=== PATIENT | male | born 1965 | race Caucasian/White ===

== ENCOUNTER 2017-05-28 16:37 | Emergency (ER) | payer BC ==
[~2017-05-28] VITALS: Ht 185.4 cm; Wt 95.0 kg
[~2017-05-28 16:37] MED LIST: BL ADULT ASA81 MG OR; FISH OIL1000 M1 OR; METOPROL TAR25 MG OR; PRILOSEC20 MG PO; SIMVASTATIN20 MG OR; ZOFRAN ODT4 MG OR
[2017-05-28 18:22] LABS: IMMATURE GRANULOCYTES 0.3 % (0.0-1.0); MEAN CELL VOLUME 87.1 fL CALC (80.0-100.0); MEAN CORPUSCULAR HGB 29.7 pG CALC (26.0-32.0); MEAN CORPUSCULAR HGB CONC 34.1 g/L CALC (32.0-36.0); NEUT# 6.82 thou/uL (1.82-7.42); RED BLOOD COUNT 5.05 mill/uL (4.70-6.10); RED CELL DISTRI WIDTH 13.8 % (11.5-15.5)
[2017-05-28 18:33] LABS: ALBUMIN 4.2 g/dL (3.2-5.0); ALKALINE PHOSPHATASE 55 u/l (38-126); ANION GAP 14 (6-22 (CALC)); BILIRUBIN, TOTAL 0.8 mg/dL (0.0-1.4); BUN 19 mg/dL (9-20); BUN/CREATININE RATIO 20 (12-20 (CALC)); CARBON DIOXIDE 26 mmol/l (22-30); CHLORIDE 105 mmol/l (95-108); GFR > 60 ML/MIN (>=60 (CALC)); GFR FOR AFR.AMER. > 60 ML/MIN (>=60 (CALC)); GLUCOSE 98 mg/dL (75-110); POTASSIUM 4.6 mmol/l (3.5-5.1); SGOT/AST 30 u/l (17-59); SGPT/ALT 38 u/l (21-72); SODIUM 140 mmol/l (137-146); TOTAL PROTEIN 7.5 g/dL (6.3-8.2)
[2017-05-28] MEDS ORDERED: CEPHALEXIN500 MG PO (18:54)
[2017-05-28] MEDS ORDERED: BACTRIM DS1 TAB PO (18:54)
[2017-05-28 19:00] VITALS: BP 138/76
== END 2017-05-28 19:21 | disposition home or self-care (01) | DRG 603 ==
LOC: ED 16:37
PROVIDERS: Emergency Medicine
DX: L03.115 Cellulitis of right lower limb (principal); M25.461 Effusion, right knee; M25.561 Pain in right knee

== ENCOUNTER 2019-04-16 13:28 | Emergency (ER) | payer SELFPAY ==
[~2019-04-16] VITALS: Ht 185.4 cm; Wt 99.0 kg
[~2019-04-16 13:28] MED LIST changes: +ASPIRIN ADULT L81 M2 PO; +ATORVASTATIN CA40 MG PO; +BACTRIM DS1 TAB PO; -BL ADULT ASA81 MG OR; +CEPHALEXIN500 MG PO
[2019-04-16] MEDS ORDERED: MUPIROCIN21 TOP (13:49)
[2019-04-16] MEDS ORDERED: CEPHALEXIN500 MG PO (13:49)
[2019-04-16] MEDS ORDERED: DOXYCYCL HYC100 M4 PO (13:49)
[2019-04-16] MEDS ORDERED: BACTRIM DS1 TAB PO (14:19)
[2019-04-16 14:27] VITALS: BP 147/92
== END 2019-04-16 14:27 | disposition home or self-care (01) | DRG 605 ==
LOC: ED 13:28
PROC: 0HQGXZZ Repair Left Hand Skin, External Approach (ICD-10-PCS; principal; 2019-04-16)
DX: S61.211A Laceration without foreign body of left index finger without damage to nail, initial encounter (principal); W45.8XXA Other foreign body or object entering through skin, initial encounter; Y93.89 Activity, other specified; Y92.009 Unspecified place in unspecified non-institutional (private) residence as the place of occurrence of the external cause